=== PATIENT | female | born 1980 | race African-American/Black ===

== ENCOUNTER → 2017-03-03 | Day surgery (SDC) | payer OTHER ==
[~2017-03-03] VITALS: Ht 165.1 cm; Wt 79.8 kg
--- NOTE | 2017-03-03 16:37 | Operative Report ---
Operative/Inv Procedure Report Surgery Date: 03/03/17 Name of Procedure: D&C hysteroscopy Pre-Operative Diagnosis: Polyps and fibroids Post-Operative Diagnosis: Same Estimated Blood Loss: scant Surgeon/Spectrograph Operator: TALIA BRASWELL MD Anesthesia: moderate sedation Operative/Procedure Note Note: She was taken the operating room placed prone position after adequate anesthesia patient placed in dorsal Position the Vagina Fashion examination under anesthesia was performed the bladder was catheterized sterilely a sterile Graves speculum was placed into vagina a single-tooth tenaculum placed on the intralipids and abdominal traction cervix was dilated to a Hegar to allow the insertion hysteroscope hysteroscope was removed and sharp curettage of the endometrial lining was performed sharp curettage of the endocervical iodoform 2 specimens were sent to pathology at the end of the case the patient was awakened from anesthesia BEEN removed from the vagina and she was transported covering wake all counts correct Findings: 12 week fibroid uterus lining consistent with 3 polyps in the lining no adnexal masses cervix appeared normal otherwise normal anatomy
== END ==
LOC: STS 03:03
DX: N84.0 Polyp of corpus uteri (principal); D25.9 Leiomyoma of uterus, unspecified; F17.200 Nicotine dependence, unspecified, uncomplicated
CPT/HCPCS: 36415; 81025; J2250